=== PATIENT | male | born 1960 | race Hispanic/Latino ===

== ENCOUNTER 2020-01-30 06:34 | Emergency (ER) | payer BC ==
[~2020-01-30] VITALS: Ht 170.2 cm; Wt 59.0 kg
[~2020-01-30 06:34] MED LIST: AMLODIPINE-BEN1 EAC1 PO; CITALOPRAM HBR20 MG PO; CRESTOR10 MG PO; GI MED PO; LOTREL 10-20 M1 EACH PO; LOTREL PO; PREDNISONE5 MG PO; [UNRECOGNIZED DRUG - OTHER] PO
--- NOTE | 2020-01-30 06:50 | NUR ---
REPORT TO ONCKELLI SESAY
--- NOTE | 2020-01-30 07:17 | Emergency Department Note ---
History of Present Illnes History of Present Illness Chief Complaint: Skin Rash or Abscess History of Present Illness This is a 59 year old male, with a history of hypertension, h yperlipidemia, and rheumatoid arthritis who receiveds weekly injections of Enbrel, who presents with a three-day history of a painful rash on the right side of his chest, right upper arm, and right neck. Patient states that the rash is painful, and not pruritic. He denies any fever, chills, nausea, or vomiting. He does admit to having chickenpox as a child. He has not received the shingles vaccine. 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 Required: No Onset (how long ago): day(s) (3) Location: right upper chest, right upper arm and right side neck Quality: sharp, stabbing, burning Radiation: Reports neck (left), Reports extremity (left) Severity: severe Onset quality: sudden Duration (how long): day(s) (3) Timing of current episode: constant Progression: unchanged Chronicity: new Context: Reports recent surgery (hernia repair, 1 month ago;); Denies recent illness, Denies trauma/injury, Denies new medications Relieving factors: none Exacerbating factors: none Associated symptoms: Reports denies other symptoms, Reports rash; Denies fever/chills, Denies nausea/vomiting, Denies weakness Treatments prior to arrival: none Risk factors: On immunosuppressive medications (Enbrel), for RA. Past Medical/Family History Physician Review I have reviewed the patient's past medical and family history. Any updates have been documented here. Past Medical History Recent Fever: No Clinical Suspicion of Infectio: No New/Unexplained Change in Ment: No Past Medical History: Hypertension, Hyperlipedemia Other Medical History: RA Other Surgery: HAS HAD 2 HERNIA REPAIRS, LAST ONE WAS 2 MONTHS AGO Social History Smoking Cessation: Current every day smoker Counseling Performed: Yes Alcohol Use: Daily Any Illegal Drug Use: No TB Exposure/Symptoms: No Physically hurt or threatened: No Family History Family history of heart diseas: No Other Any Pre-Existing Lines (PICC,: No Is patient up to date on immun: No Review of Systems Review of Systems Constitutional: Denies chills, Denies fever EENTM: Denies eye pain, Denies blurred vision, Denies double vision Cardiovascular: Denies chest pain, Denies palpitations Respiratory: Denies cough, Denies dyspnea Gastrointestinal: Denies abdominal pain, Denies nausea, Denies vomiting Musculoskeletal: Reports no symptoms Integumentary: Reports change in color (erythema), Reports lesions (clear vesicles on a bright red base;), Reports rash (erythematous, scabbed rash, with clear vesicles) Neurological: Denies headache, Denies numbness, Denies paresthesia, Denies weakness Psychological: Reports no symptoms Endocrine: Reports no symptoms Review of other systems: All other systems negative Physical Exam Related Data Allergies: Coded Allergies: No Known Allergies (Unverified , 05/11/13) Triage Vital Signs Vital Signs Date Time Temp Pulse Resp B/P (MAP) Pulse Ox O2 Delivery O2 Flow Rate FiO2 01/30/20 06:40 98.4 89 18 166/97 98 Room Air Vital signs reviewed: Yes Physical Exam CONSTITUTIONAL Constitutional: Present well-developed, Present well-nourished; Absent distressed, Absent ill appearing HENT HENT: Present normocephalic, Present atraumatic, Present oropharynx clear/moist, Present nose normal; Absent oropharyngeal exudate HENT L/R: Present left ext ear normal, Present right ext ear normal EYES Eyes: Reports PERRL, Reports conjunctivae normal, Reports other (no lesions on right eye or near the right eye;) NECK Neck: Present ROM normal PULMONARY Pulmonary: Present effort normal, Present breath sounds normal CARDIOVASCULAR Cardiovascular: Present regular rhythm, Present heart sounds normal, Present capillary refill normal, Present normal rate GASTROINTESTINAL Abdominal: Present soft, Present nontender, Present bowel sounds normal GENITOURINARY Genitourinary: Present exam deferred SKIN Skin: Present erythema, Present rash (erythematous rash with eschar and diffuse fluid filled clear vesicles on the right upper chest, right upper arm and right neck (C2-C5, T2-T5 - right side only) ), Present lesion MUSCULOSKELETAL Musculoskeletal: Present ROM normal NEUROLOGICAL Neurological: Present alert, Present oriented x 3, Present no gross motor or sensory deficits PSYCHOLOGICAL Psychological: Present mood/affect normal Assessment & Plan Medical Decision Making MDM - You may use "Calamine lotion or Sarna lotion," as needed, to help with pain and itching - Complete the entire course of Valacyclovir, and you may take Tylenol #3, as needed, for pain. - Contact your Passenger Coach Driver today, to let them know that you have been diagnosed with "Shingles." They may want you to hold her next dose of Enbrel. Assessment & Plan Final Impression: (1) Shingles (2) Rash (3) Rheumatoid arthritis (4) Hypertension (5) Hyperlipidemia Depart Disposition: HOME, SELF-CARE Last Vital Signs Date Time Temp Pulse Resp B/P (MAP) Pulse Ox O2 Delivery O2 Flow Rate FiO2 01/30/20 06:40 98.4 89 18 166/97 98 Room Air Home Meds Active Scripts Acetaminophen With Codeine (TYLENOL WITH CODEINE #3 TABLET) 1 Each Tablet, 1-2 TAB PO Q6H for pain, #20 TAB 0 Refills Do NOT take and drive or operate machinery Prov:FELTON PARKER MD 01/30/20 Valacyclovir Hcl (VALACYCLOVIR) 500 Mg Tablet, 1000 MG PO Q8H for Shingles for 7 Days, #21 TAB 0 Refills Prov:FELTON PARKER MD 01/30/20 Reported Medications Amlodipine Besylate/Benazepril (AMLODIPINE-BENAZEPRIL 5-10 MG) 1 Each Capsule, PO DAILY 07/13/15 [Xejanz] No Conflict Check, 5 MG PO BID 07/13/15 Citalopram Hydrobromide (CITALOPRAM HBR) 20 Mg Tablet, 20 MG PO DAILY, TAB 07/13/15 Prednisone (PREDNISONE) 5 Mg Tablet, 5 MG PO DAILY 07/13/15 Rosuvastatin Calcium (CRESTOR) 10 Mg Tab, 10 MG PO DAILY 05/07/13 FELTON PARKER MD Jan 30, 2020 07:17
[2020-01-30] MEDS ORDERED: VALACYCLOVIR500 MG PO (07:27)
[2020-01-30] MEDS ORDERED: TYLENOL WITH C1 EACH PO (07:31)
[2020-01-30 08:02] VITALS: BP 157/91
== END 2020-01-30 07:54 | disposition home or self-care (01) ==
LOC: FSED 07:22
DX: B02.9 Zoster without complications (principal); M06.9 Rheumatoid arthritis, unspecified; I10 Essential (primary) hypertension; E78.5 Hyperlipidemia, unspecified
CPT/HCPCS: 99283